=== PATIENT | female | born 1995 | race Caucasian/White ===

== ENCOUNTER 2019-08-10 02:32 | Emergency (ER) | payer BC ==
[2019-08-10] MEDS ORDERED: NS 0.9% 1000 ML** 1,000 ML IV ONE (02:48)
--- NOTE | 2019-08-10 03:04 | ED ---
Substance Abuse/Use - HPI Summary HPI Summary: Pt is a 24 y/o F presenting to the ED brought in by [place] [employer] for substance abuse. Pt states she was on her way home from a alliance party when her foot that she usually wears a boot on started to hurt too much to walk on it. She sat down because she could not stand anymore, and then the police brought her here. She admits to alcohol and tobacco use tonight. Denies drug use or fever. - History Of Current Complaint Chief Complaint: EDSubstanceAbuse Stated Complaint: 941 PER EMS Time Seen by Provider: 08/10/19 02:47 Hx Obtained From: Patient Onset/Duration of Drug/ETOH Abuse: Hours Overdose Characteristics: Oral Timing Of Abuse: Binge Use Severity Initially: Mild Severity Currently: Mild Aggravating Factor(s): Nothing Alleviating Factor(s): Nothing Associated Signs And Symptoms: Other: - somnolent - Allergies/Home Medications Allergies/Adverse Reactions: Allergies Allergy/AdvReac Type Severity Reaction Status Date / Time No Known Allergies Allergy Verified 08/10/19 02:42 Home Medications: Home Medications DULoxetine DR CALI* [Cymbalta CAP*] 90 mg PO DAILY 08/10/19 [History Confirmed ] Klonopin 1.5 mg PO 08/10/19 [History] Naproxen 220 mg 220 mg PO 08/10/19 [History] Singulair 10 MG TAB* 10 mg PO DAILY 08/10/19 [History Confirmed 08/10/19] lamoTRIgine [Lamictal] 300 mg PO DAILY 08/10/19 [History Confirmed 08/10/19] PMH/Surg Hx/FS Hx/Imm Hx Previously Healthy: Yes Endocrine/Hematology History: Denies: Hx Diabetes Cardiovascular History: Denies: Hx Hypertension Infectious Disease History: No Infectious Disease History: Denies: Traveled Outside the [place] in Last 30 Days - Family History Known Family History: Negative: Diabetes - Social History Alcohol Use: Weekly Alcohol Amount: 3 drinks Hx Substance Use: No Substance Use Type: Reports: None Hx Tobacco Use: No Smoking Status (MU): Never Smoked Tobacco Review of Systems - ROS Summary Review of Systems Summary: Home Medications Medication Instructions Recorded Confirmed Type DULoxetine DR CALI* [Cymbalta CAP*] 90 mg PO DAILY 08/10/19 08/10/19 History Klonopin 1.5 mg PO 08/10/19 History Naproxen 220 mg 220 mg PO 08/10/19 History Singulair 10 MG TAB* 10 mg PO DAILY 08/10/19 08/10/19 History lamoTRIgine [Lamictal] 300 mg PO DAILY 08/10/19 08/10/19 History Negative: Fever Positive: Myalgia - L foot pain Neurological: Other - intoxicated All Other Systems Reviewed And Are Negative: Yes Physical Exam - Summary Physical Exam Summary: General: Well-developed, Well-nourished female. No acute distress. HEENT: Normocephalic, Atraumatic. Eyes: Conjuctiva normal, PERRL. Oropharynx: Clear, mucous membranes moist, (-) exudates. Neck: Soft, FROM, (-) lymphadenopathy, (-) thyromegaly, (-) JVD. Cardiovascular: Normal sinus rhythm, (-) murmur. Lungs: Clear to auscultation bilaterally (-) wheezes, (-) rales, (-) rhonchi. Abdomen: Soft, non-tender, non-distended, (-) organomegaly, normal bowel sounds. Back: (-) CVA tenderness Extremities: No edema. Skin: Warm, dry, (-) rash. Neuro: Awake & alert. Slurs words. Psychiatric: Mood normal, affect normal. Triage Information Reviewed: Yes Vital Signs On Initial Exam: Initial Vitals Temp Pulse Resp BP Pulse Ox 98.1 F 93 16 140/97 99 08/10/19 02:39 08/10/19 02:39 08/10/19 02:39 08/10/19 02:39 08/10/19 02:39 Vital Signs Reviewed: Yes Procedures - Sedation Patient Received Moderate/Deep Sedation with Procedure: No Diagnostics - Vital Signs Vital Signs Temp Pulse Resp BP Pulse Ox 08/10/19 02:39 98.1 F 93 16 140/97 99 - Laboratory Result Diagrams: 08/10/19 02:59 08/10/19 02:59 Lab Statement: Any lab studies that have been ordered have been reviewed, and results considered in the medical decision making process. Course/Dx - Course Course Of Treatment: 24-year-old female brought in by police as she was found outside. Unable to give her address or personal information. Patient admits to drinking tonight. She states she is here because her foot hurt and she sat down. Patient is obviously intoxicated upon arrival. Slurring her words. She is alert and oriented 3. Patient given IV fluids and Zofran. Signed out at change of shift awaiting sobriety, reevaluation and disposition. - Diagnoses Provider Diagnoses: Alcohol intoxication Discharge ED - Sign-Out/Discharge Documenting (check all that apply): Sign-Out Patient Signing out patient TO: Cuauhtemoc Rice - Discharge Plan Referrals: No Primary Care Phys,NOPCP [Primary Care Provider] - - Attestation Statements Document Initiated by Scribe: Yes Documenting Scribe: Jennifer Mckeon Provider For Whom Scribe is Documenting (Include Credential): Caro Hassan MD. Scribe Attestation: Jennifer Monte, scrmaryed for Caro Hassan MD. on 08/10/19 at 0603. Scribe Documentation Reviewed: Yes Provider Attestation: The documentation as recorded by the scribeJennifer accurately reflects the service I personally performed and the decisions made by , Caro Hassan MD. Status of Scribe Document: Viewed
[2019-08-10 03:10] LABS: ABS Basophils 0.1 10^3/ul (0-0.2); ABS Eosinophils 0.2 10^3/ul (0-0.6); ABS Lymphocytes 2.5 10^3/ul (1.0-4.8); ABS Monocytes 0.4 10^3/ul (0-0.8); ABS Neutrophils 4.6 10^3/ul (1.5-7.7); Eosinophil % 2.8 %; Hematocrit 37 % (35-47); Hemoglobin 12.5 g/dL (12.0-16.0); Lymphocyte % 32.7 %; Mean Corpuscular HGB Conc 34 g/dL (31-36); Mean Corpuscular Hemoglobin 30 pg (27-31); Mean Corpuscular Volume 87 fL (80-97); Mean Platelet Volume 8.2 fL (7.4-10.4); Platelet Count 359 10^3/uL (150-450); Red Blood Count 4.23 10^6 /uL (3.70-4.87); Red Cell Distribution Width 14 % (10-15); White Blood Count 7.7 10^3/uL (3.5-10.8)
[2019-08-10] MEDS ORDERED: Ibuprofen TAB* 400 MG PO ONE (03:20)
[2019-08-10 03:27] LABS: ALT 13 U/L (7-52); AST 17 U/L (13-39); Albumin 4.7 g/dL (3.2-5.2); Albumin/Globulin Ratio 1.8 (1-3); Alkaline Phosphatase 61 U/L (34-104); Anion Gap 11 mmol/L (2-11); BUN/Creatinine Ratio 9.1 (8-20); Blood Urea Nitrogen 7 mg/dL (6-24); CO2 Carbon Dioxide 23 mmol/L (22-32); Chloride 108 mmol/L (101-111); EGFR African American 113.4 (>60); EGFR Non-African American 93.7 (>60); Globulin 2.6 g/dL (2-4); Glucose 103 mg/dL (70-100); Potassium 3.5 mmol/L (3.5-5.0); Sodium 142 mmol/L (135-145); Total Protein 7.3 g/dL (6.4-8.9)
[2019-08-10 03:33] LABS: Acetaminophen < 15 mcg/mL; Alcohol 255 mg/dL (<10); Salicylate < 2.50 mg/dL (<30)
[2019-08-10 03:34] LABS: HCG Pregnancy < 0.60 mIU/mL
[2019-08-10 03:49] LABS: TSH (Thyroid Stimulating Horm) 0.63 mcIU/mL (0.34-5.60)
[2019-08-10 04:10] LABS: Urine Appearance Clear; Urine Bilirubin Negative (Negative); Urine Blood Negative (Negative); Urine Color Straw; Urine Glucose Negative (Negative); Urine Ketones Negative (Negative); Urine Nitrite Negative (Negative); Urine Protein Negative (Negative); Urine Specific Gravity 1.001 (1.010-1.030); Urine Urobilinogen Negative (Negative)
[2019-08-10 04:27] LABS: Urine Benzodiazepine Screen None Detected (None Detect); Urine Opiates Screen None Detected (None Detect)
--- NOTE | 2019-08-10 07:03 | ED ---
Progress - Progress Note Progress Note: This patient is a 24 y/o F brought to [facility] by [facility] for chief complaint of alcohol intoxication. This patient is a sign-out from Dr. Caro Hassan to Dr. Cuauhtemoc Rice at 0700 on 08/10/19 at shift change pending sobriety and disposition. Re-Evaluation - Re-Evaluation First Eval Re-Evaluation Time: 11:17 Comment: Patient woke up. Patients HR is 140, but she reports she is stressed and late as it is finals for her and she would like to leave. While we are talking, her HR is coming down. This is not a cardiac event. Second Eval Re-Evaluation Time: 11:43 Comment: HR 88, can be discharged. Patient understands and agrees with this plan. Course/Dx - Course Course Of Treatment: This patient is a 24 y/o F brought to [facility] by [facility] for chief complaint of alcohol intoxication. This patient is a sign-out from Dr. Caro Hassan to Dr. Cuauhtemoc Rice at 0700 on 08/10/19 at shift change pending sobriety and disposition. In the ED course, patient sobered up. She will be discharged home with dx of alcohol intoxication. - Diagnoses Provider Diagnoses: Alcohol intoxication Discharge ED - Sign-Out/Discharge Documenting (check all that apply): Patient Departure - Discharge, Receiving Sign-Out Receiving patient FROM: Caro Hassan - Discharge Plan Condition: Stable Disposition: HOME Patient Education Materials: Alcohol Intoxication (ED), Abuse of Alcohol (ED) Referrals: [facility] [Outside] - 3 Days Additional Instructions: Please follow up with your primary care provider in 2-3 days. PLEASE RETURN TO THE ER FOR WORSENING OR CHANGING SYMPTOMS. - Billing Disposition and Condition Condition: STABLE Disposition: Home - Attestation Statements Document Initiated by Scribe: Yes Documenting Scribe: Antonio Garcia Provider For Whom Dennise is Documenting (Include Credential): Cuauhtemoc Rice MD Scribe Attestation: Antonio Monte, scribed for Cuauhtemoc Rice MD on 08/10/19 at 1854. Scribe Documentation Reviewed: Yes Provider Attestation: The documentation as recorded by the Antonio king accurately reflects the service I personally performed and the decisions made by me, Cuauhtemoc Rice MD Status of Scribe Document: Viewed Procedures - Sedation Patient Received Moderate/Deep Sedation with Procedure: No
[2019-08-10 12:18] VITALS: BP 117/76
--- OUTSIDE RECORDS SUMMARY | 2019-08-10 14:29 | XMS REPORT | Continuity of Care Document ---
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 Information Available Social History Type Date Description Comments Sex Unknown Tobacco Use Start: Unknown Patient has never smoked Smoking Status Reviewed: 07/14/19 Patient has never smoked Allergies, Adverse Reactions, Alerts Description No Known Drug Allergies Medications Active Medications SIG Qnty Indications Ordering Provider Date Cymbalta 1 caps by mouth Unknown 30mg Caps DR daily Part Lamictal 2 tabs by mouth Unknown 150mg Tablets every day Cymbalta 1 by mouth every Unknown 60mg Caps DR day Part Singulair 1 by mouth every Unknown 10mg Tablets day Naproxen 2 tablet with Unknown 250mg Tablets food by mouth twice a day as needed Nexplanon implant left Unknown 68mg Implant upper arm Deodafinil 50-200MG as needed Unknown Clonazepam take 1/2 to 1 Unknown 1mg Tablets tablet by mouth as needed Immunizations Description No Information Available Vital Signs Date Vital Result Comment 07/14/2019 2:15pm Height 64 inches 5'4" Weight 128.00 lb Heart Rate 108 /min BP Systolic Sitting 128 mmHg BP Diastolic Sitting 82 mmHg Respiratory Rate 16 /min Pain Level 4 O2 % BldC Oximetry 97 % BMI (Body Mass Index) 22.0 kg/m2 Results Description No Information Available Procedures Description No Information Available Medical Devices Description No Information Available Encounters Description No Information Available Assessments Date Code Description Provider 07/14/[address] left foot [address] Franco MD Plan of Treatment 07/14/2019 - Lane Franco, MDM79.672 Pain in left footNew Labs:CBC Auto Diff, Ordered: 07/14/19Erythrocyte Sed Rate, Ordered: 07/14/19C Reactive Protein, Ordered: 07/14/19 Functional Status Description No Information Available Mental Status Description No Information Available Referrals Description No Information Available
--- OUTSIDE RECORDS SUMMARY | 2019-08-10 14:29 | XMS REPORT | Continuity of Care Document ---
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 Social History Type Date Description Comments Sex Unknown Tobacco Use Start: Unknown Patient has never smoked Smoking Status Reviewed: 08/04/19 Patient has never smoked Allergies, Adverse Reactions, [...] Available Vital Signs Date Vital Result Comment 08/04/2019 1:45pm Height 64 inches 5'4" Weight 130.00 lb Heart Rate 96 /min BP Systolic 118 mmHg BP Diastolic 76 mmHg Respiratory Rate 17 /min Body Temperature 98.1 F Pain Level 4 BMI (Body Mass Index) 22.3 kg/m2 07/14/2019 2:15pm Height 64 inches 5'4" Weight 128.00 lb Heart Rate 108 /min BP Systolic Sitting 128 mmHg BP Diastolic Sitting 82 mmHg Respiratory Rate 16 /min Pain Level 4 O2 % BldC Oximetry 97 % BMI (Body Mass Index) 22.0 kg/m2 Results Test Acquired Date Facility Test Result H/L Range Note CBC Auto 07/18/2019 [facility] White Blood 8.1 10^3/uL Normal 3.5-10.[address] [place] [address] [phone] Red Blood Count 4.13 10^6/uL Normal 3.70-4.87 Hemoglobin 12.1 g/dL Normal 12.0-16.0 Hematocrit 36 % Normal 35-47 Mean Corpuscular Volume 88 fL Normal 80-97 Mean Corpuscular Hemoglobin 29 pg Normal 27-31 Mean Corpuscular HGB Conc 33 g/dL Normal 31-36 Red Cell Distribution Width 13 % Normal 10-15 Platelet Count 300 10^3/uL Normal 150-450 Mean Platelet Volume 8.3 fL Normal 7.4-10.4 Abs Neutrophils 5.2 10^3/uL Normal 1.5-7.7 Abs Lymphocytes 2.1 10^3/uL Normal 1.0-4.8 Abs Monocytes 0.6 10^3/uL Normal 0-0.8 Abs Eosinophils 0.1 10^3/uL Normal 0-0.6 Abs Basophils 0.1 10^3/uL Normal 0-0.2 Abs Nucleated RBC 0.0 10^3/uL Granulocyte % 64.7 % Lymphocyte % 25.7 % Monocyte % 7.1 % Eosinophil % 1.7 % Basophil % 0.8 % Nucleated Red Blood Cells % 0.0 Laboratory test 07/18/2019 [facility] Erythrocyte Sed 4 mm/Hr Normal 0-[address] [place] [address] [phone] C Reactive Protein < 1.00 mg/L Normal <8.01 Procedures Description No Information Available Medical Devices Description No Information Available Encounters Type Date Location Provider Dx Diagnosis Office Visit 07/14/2019 [facility] Fabian [id number] Pain in left foot 1:30p at [facility] Assessments Date Code Description Provider 08/04/[address] Franco MD 07/14/[address]79[address] in left foot [address] Franco MD Plan of Treatment 08/04/2019 - Lane Franco, MDM21.612 Bunion of left footNew Xrays:CT Extremity Lower Left Wo, Ordered: 08/04/19MRI Lower Extremity Left W/O, Ordered: Follow up:Follow Up: after testing / imaging is completed Functional Status Description No Information Available Mental Status Description No Information Available Referrals Description No Information Available
== END 2019-08-10 12:11 | disposition home or self-care (01) ==
LOC: ED 02:32
DX: F10.929 Alcohol use, unspecified with intoxication, unspecified (principal); Z79.899 Other long term (current) drug therapy
CPT/HCPCS: 36415; 80053; 80175; 80307; 80320; 80329; 81003; 83605; 84443; 84702; 85025; 99283; A9270-GY; G0480